=== PATIENT | female | born 1990 | race African-American/Black ===

== ENCOUNTER 2017-04-26 13:57 | Emergency (ER) | payer SELFPAY ==
[~2017-04-26] VITALS: Ht 162.6 cm; Wt 163.0 kg
[~2017-04-26 13:57] MED LIST: CEPH500C3 PO; HYDR50 PO; PRED50TA PO; Z.0.NO CURRENT MEDS
[2017-04-26 14:08] VITALS: BP 142/79; PULSE 79; RESP 18; TEMP 98.4; O2SAT 100
[2017-04-26] MEDS ORDERED: IBUPROFEN 600 MG TAB PO ONE (15:30)
--- NOTE | 2017-04-26 15:48 | PD ---
HPI . Left knee pain Chief Complaint: Musculoskeletal Complaint Time Seen by Provider: 15:02 Travel History International Travel<30 days: No Contact w/Intl Traveler<30days: No Traveled to known affect area: No History of Present Illness HPI 27-year-old female presents emergency department for evaluation of left knee pain. The pain started last Tuesday when she bent down to pick something off the ground and heard a loud pop in her left knee. The knee has been edematous and painful subsequent. Patient denies any major medical history. The left leg is neurovascularly intact. The patient is ambulatory without limp. The left knee is mildly edematous, no ecchymosis or erythema noted. No signs of an effusion. Patient states she has been using ibuprofen and ice and elevating her knee at home and the pain has been persistent. [facility] Past Medical History Asthma: Yes ?: Not LMP: 04/08/17 Past Surgical History Surgical History: No Previous Surgery Social History Alcohol Use: No Tobacco Use: No Substance Use: No Allergies-Medications (Allergen,Severity, Reaction): Coded Allergies: No Known Allergies (Verified , 01/10/12) Reported Meds & Prescriptions Reported Meds & Active Scripts Active No Active Prescriptions or Reported Medications Review of Systems Except as stated in HPI: all other systems reviewed are Neg Physical Exam Narrative GENERAL: Well-nourished, well-developed obese 27-year-old female patient in no acute distress. Nontoxic appearing SKIN: Focused skin assessment warm/dry. HEAD: Normocephalic. Atraumatic. EYES: No scleral icterus. No injection or drainage. NECK: Supple, trachea midline. No JVD or lymphadenopathy. CARDIOVASCULAR: Regular rate and rhythm without murmurs, gallops, or rubs. RESPIRATORY: Breath sounds equal bilaterally. No accessory muscle use. GASTROINTESTINAL: Abdomen soft, non-tender, nondistended. MUSCULOSKELETAL: Left knee mildly edematous. No obvious deformity, signs of effusion, ecchymosis, erythema or cyanosis. BACK: Nontender without obvious deformity. No CVA tenderness. Data Data Last Documented VS Vital Signs Date Time Temp Pulse Resp B/P (MAP) Pulse Ox O2 Delivery O2 Flow Rate FiO2 04/26/17 14:08 98.4 79 18 142/79 (100) 100 Orders Orders Knee, Complete (4vws) (04/26/17 15:24) Ice/Cold Pack (10/24/17 15:24) Ibuprofen (Motrin) (04/26/17 15:30) [facility] Medical Decision Making Medical Screen Exam Complete: Yes Emergency Medical Condition: Yes Differential Diagnosis Differential diagnosis include but not limited to ligamental injury, effusion, knee strain, knee sprain Narrative Course 27-year-old female presents to emergency department for evaluation of left knee pain that started last Tuesday when she went down to pick something off the ground and heard a loud pop in her knee. The knee has been edematous and painful subsequent. No signs of trauma such as ecchymosis, erythema or cyanosis. X-ray of the left knee ordered and pending. Ice applied to the left knee. Ibuprofen ordered for pain and swelling. X-ray of the left knee shows no evidence of fracture or dislocation. Marck wrap will be applied to the left knee and patient will be discharged home with instructions to follow-up with primary care and/or orthopedics for further investigation and possible MRI. Diagnosis Primary Impression: Knee pain Qualified Codes: M25.562 - Pain in left knee Referrals: Orthopedist Primary Care Physician Patient Instructions: General Instructions, Knee Pain (ED) Additional Instructions: Please return to emergency department if your symptoms return or worsen. Follow up with your primary care provider and/or orthopedics for further investigation of knee pain. May use [id number] ibuprofen as needed for pain and swelling. May use ice as needed for pain and swelling. Rice therapy left knee, rest, ice, use Marck wrap been ambulatory and elevate when resting. Scripts No Active Prescriptions or Reported Meds Disposition: 01 DISCHARGE HOME Condition: Stable Enma Beltrán Apr 26, 2017 15:48
--- NOTE | 2017-04-26 15:48 | PD ---
HPI . Left knee pain Chief Complaint: Musculoskeletal Complaint Time Seen by Provider: 15:02 Travel History International Travel<30 days: No Contact w/Intl Traveler<30days: No Traveled to known affect area: No History of Present Illness HPI 27-year-old female presents emergency department for evaluation of left knee pain. The pain started last Tuesday when she bent down to pick something off the ground and heard a loud pop in her left knee. The knee has been edematous and painful subsequent. Patient denies any major medical history. The left leg is neurovascularly intact. The patient is ambulatory without limp. The left knee is mildly edematous, no ecchymosis or erythema noted. No signs of an effusion. Patient states she has been using ibuprofen and ice and elevating her knee at home and the pain has been persistent. [facility] Past Medical History Asthma: Yes ?: Not LMP: 04/08/17 Past Surgical History Surgical History: No Previous Surgery Social History Alcohol Use: No Tobacco Use: No Substance Use: No Allergies-Medications (Allergen,Severity, Reaction): Coded Allergies: No Known Allergies (Verified , 01/10/12) Reported Meds & Prescriptions Reported Meds & Active Scripts Active No Active Prescriptions or Reported Medications Review of Systems Except as stated in HPI: all other systems reviewed are Neg Physical Exam Narrative GENERAL: Well-nourished, well-developed obese 27-year-old female patient in no acute distress. Nontoxic appearing SKIN: Focused skin assessment warm/dry. HEAD: Normocephalic. Atraumatic. EYES: No scleral icterus. No injection or drainage. NECK: Supple, trachea midline. No JVD or lymphadenopathy. CARDIOVASCULAR: Regular rate and rhythm without murmurs, gallops, or rubs. RESPIRATORY: Breath sounds equal bilaterally. No accessory muscle use. GASTROINTESTINAL: Abdomen soft, non-tender, nondistended. MUSCULOSKELETAL: Left knee mildly edematous. No obvious deformity, signs of effusion, ecchymosis, erythema or cyanosis. BACK: Nontender without obvious deformity. No CVA tenderness. Data Data Last Documented VS Vital Signs Date Time Temp Pulse Resp B/P (MAP) Pulse Ox O2 Delivery O2 Flow Rate FiO2 04/26/17 14:08 98.4 79 18 142/79 (100) 100 Orders Orders Knee, Complete (4vws) (04/26/17 15:24) Ice/Cold Pack (10/24/17 15:24) Ibuprofen (Motrin) (04/26/17 15:30) [facility] Medical Decision Making Medical Screen Exam Complete: Yes Emergency Medical Condition: Yes Differential Diagnosis Differential diagnosis include but not limited to ligamental injury, effusion, knee strain, knee sprain Narrative Course 27-year-old female presents to emergency department for evaluation of left knee pain that started last Tuesday when she went down to pick something off the ground and heard a loud pop in her knee. The knee has been edematous and painful subsequent. No signs of trauma such as ecchymosis, erythema or cyanosis. X-ray of the left knee ordered and pending. Ice applied to the left knee. Ibuprofen ordered for pain and swelling. X-ray of the left knee shows no evidence of fracture or dislocation. Marck wrap will be applied to the left knee and patient will be discharged home with instructions to follow-up with primary care and/or orthopedics for further investigation and possible MRI. Diagnosis Primary Impression: Knee pain Qualified Codes: M25.562 - Pain in left knee Referrals: Orthopedist Primary Care Physician Patient Instructions: General Instructions, Knee Pain (ED) Additional Instructions: Please return to emergency department if your symptoms return or worsen. Follow up with your primary care provider and/or orthopedics for further investigation of knee pain. May use [id number] ibuprofen as needed for pain and swelling. May use ice as needed for pain and swelling. Rice therapy left knee, rest, ice, use Marck wrap been ambulatory and elevate when resting. Scripts No Active Prescriptions or Reported Meds Disposition: 01 DISCHARGE HOME Condition: Stable Enma Beltrán Apr 26, 2017 15:48
--- NOTE | 2017-04-26 16:49 | RADRPT ---
EXAM DATE/TIME: 04/26/2017 16:09 [facility] COMPARISON: No previous studies available for comparison. INDICATIONS : Left knee pain for 4 days. Patient stated she heard a pop. MEDICAL HISTORY : None. SURGICAL HISTORY : None. ENCOUNTER: Initial ACUITY: 4 - 6 days PAIN SCORE: 8/10 LOCATION: Left knee. FINDINGS: Four view examination of the left knee demonstrates no evidence of fracture or dislocation. Bony min eralization is normal. The articular surfaces are intact. The suprapatellar soft tissues have a nor mal configuration. CONCLUSION: No evidence of fracture or dislocation. Geovanny Gamez MD on April 26, 2017 at 16:47 Board Certified Radiologist. This report was verified electronically.
== END 2017-04-26 17:30 | disposition home or self-care (01) ==
LOC: PHED 13:57 → PHEFT 17:30
DX: M25.562 Pain in left knee (principal)
CPT/HCPCS: 73564; 99283